=== PATIENT | male | born 1965 | race Caucasian/White ===

== ENCOUNTER 2024-09-08 08:14 | Day surgery (SDC) | payer MEDICARE, SELFPAY ==
[2024-09-08] VITALS (8 sets, daily range): BP systolic 111–149; BP diastolic 79–116; BMI 35.0
[2024-09-08] MEDS: LOW STRENGTH ASPIRIN 81 MG PO (09:57)
[2024-09-08 10:01] LABS: Glucose - Point of Care 83 mg/dl (70-99)
--- NOTE | 2024-09-08 19:12 | ITS.CL.PN ---
Senior Director Marketing - Procedure Note
Procedure
Procedure Note:
CARDIAC CATHETERIZATION REPORT
Date of Procedure: 09/08/2024
Referring: Dr. Jerzy Henley MD
INDICATION: typical angina, positive cardiac stress test
PROCEDURE:
1. Left heart catheterization
2. Coronary angiography
ACCESS:
6 Danish right radial artery (TR band)
CATHETERS:
1. 6 [place] JR4
2. 6 [place] JL3.5
HEMODYNAMIC DATA
LV 128/0 (EDP 12) mmHg
AO 128/81 (mean 97) mmHg
CORONARY ANGIOGRAPHY
Dominance: right
LM: large, normal
LAD: large vessel giving rise to a large D1 and small D2. There are mild luminal irregularities.
LCx: large vessel giving rise to a small OM1, moderate caliber OM2, and large OM3. There are mild luminal irregularities.
RCA: large vessel giving rise to a moderate caliber RPDA and large RPL system. There are mild luminal irregularities.
RADIATION:
Radiation (mGy): 306
DAP (cm2.Gy): 20
Fluoroscopy time (minutes): 2.5
CONCLUSIONS
1. Very mild, non-obstructive coronary artery disease in a right dominant system.
2. Normal LV filling pressure and no aortic stenosis on pullback.
RECOMMENDATIONS:
1. Expectant management after cardiac catheterization via right radial approach.
2. Aggressive primary prevention of coronary artery disease.
3. Treatment for ANOCA.
Copy to: Dr. Jerzy Henley MD (product safety associate); Dr. Matt Shoemaker MD (PCP)
Signed: Vish Guadarrama MD, PhD
== END 2024-09-08 15:53 | disposition home or self-care (01) ==
LOC: CATH 08:14
PROVIDERS: ATTENDING PHYSICIAN Student in an Organized Health Care Education/Training Program; FAMILY PHYSICIAN Internal Medicine; OTHER PHYSICIAN Internal Medicine Cardiovascular Disease
DX: I25.118 Atherosclerotic heart disease of native coronary artery with other forms of angina pectoris (principal); R94.39 Abnormal result of other cardiovascular function study
CPT/HCPCS: 82962; 93458; C1894; Q9967